=== PATIENT | female | born 1990 | race Caucasian/White ===

== ENCOUNTER 2020-07-16 10:39 | Emergency (ER) | payer MEDICAID ==
[~2020-07-16] VITALS: Ht 167.6 cm; Wt 68.0 kg
[2020-07-16 11:18] LABS: HEMATOCRIT. 45.2 % (36.0-48.0); MEAN CORPUSCULAR HEMOGLOBIN 29.1 pg (28.0-32.0); MEAN CORPUSCULAR VOLUME 87.5 fL (81.0-99.0); MEAN PLATELET VOLUME 9.9 fl (7.4-10.4); PLATELET 287 x1000/uL (130-400); RED BLOOD CELL COUNT 5.17 mill/uL (4.2-5.4); RED CELL DISTRIBUTION WIDTH 15.9 % (11.6-14.6)
[2020-07-16 11:25] LABS: CHLORIDE 104 mEq/L (98-107)
[2020-07-16 12:33] LABS: PLATELET ESTIMATE NORMAL
[2020-07-16 14:41] LABS: HCG SCREEN NEGATIVE
[2020-07-16 18:02] VITALS: BP 117/76
== END 2020-07-16 18:09 | disposition home or self-care (01) ==
LOC: ER 10:39
DX: R55 Syncope and collapse (principal); F20.9 Schizophrenia, unspecified
CPT/HCPCS: 36415; 71045; 80053; 83880; 84484; 84703; 85025; 93005; 99285